=== PATIENT | male | born 1970 | race Caucasian/White ===

== ENCOUNTER 2018-05-14 11:43 | Emergency (ER) | payer BC, OTHER ==
--- OUTSIDE RECORDS SUMMARY | 2018-05-14 12:01 | XMS REPORT ---
:1970 External Reference #:[id number] Author Organization [facility] Address [address] [place] [address] Phone [phone] Care Team Providers Name Role Phone Tiarra Ramirez M.D. 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 Primary Care Physician Unavailable Payers Type Date Identification Numbers Payment Provider Subscriber Commercial Effective: Policy Number: [id number] ARIADNA NIKI Monteiro 2018 PayID: [id number] [address] [address] T[place] Lindsay [address] Commercial Expires: 2017 PayID: [id number] Self Pay Jacob Monteiro Medigap Part B Effective: 2014 Policy Number: ARIADNA MCCARTYLety Monteiro [id number] Expires: 2017 PayID: [id number] [address] [place] [address] Medigap Part B Expires: 2014 Policy Number: [facility] NIKI Monteiro [id number] Group Number: [id number] [address] PayID: [id number] TAMMIE Lindsay [address] Medigap Part B Expires: 2017 Policy Number: [facility] NIKI Monteiro [id number] PayID: [id number] [address] [address] TAMMIE Lidnsay [address] Problems Date Description Provider Status Onset: 02/21/2016 History of malignant neoplasm of Sujit Finney MD Active kidney Onset: 09/21/2016 Solitary nodule of lung ZACK Smith Active [facility] Onset: 09/21/2016 Microscopic hematuria ZACK Smith Active [facility] Onset: 09/21/2016 Lymphadenopathy ZACK Smith Active [facility] 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 Cigarette Use 04/28/2018 Former Cigarette Smoker 1 Pack Daily 20 Year History ETOH Use current beer 1 per week Daily Caffeine Consumes on average 2 cups of coffee per day Allergies, Adverse Reactions, Alerts Date Description Reaction Status Severity Comments 01/21/2007 Anti-Inflammatories active 12/27/2015 Skelaxin active 12/27/2015 Celebrex active Medications Medication Date Status Form Strength Qnty SIG Indications Ordering Provider Ibuprofen / Active Tablets 200mg as needed Unknown 0000 No Active 02/10/ Hx Unknown Medications 2015 - 2017 Cephalexin 01/27/ Hx Capsules 500mg 30caps take 1 tab Sujit Mckeon 2015 - by mouth MD Sharmin 02/09/ tid 2015 [place] 12/30/ Hx Tablets 5-325mg 30tabs 1 tab Sujit Mckeon 2015 - every 4 MD Sharmin 01/26/ hours as 2016 needed for pain i stop # [id number] start after surgery Colace 12/30/ Hx Capsules 100mg 30caps 1 by mouth Sujit Mckeon 2015 - twice a MD Sharmin 01/27/ day 2015 No Active 12/26/ Hx Unknown Medications 2015 - 2015 Cialis 03/28/ Hx Tablets 2.5mg 1tabs 1 po qd Praveen 2007 - dispense 12/25/ one box of Antwon Davalos 2015 30 . Viagra 01/14/ Hx Tablets 100mg 6tabs one tablet Praveen 2005 - po qd prn 03/28/ erections. Antwon Davalos 2007 ..december cut . the pills in half Cialis 01/13/ Hx Tablets 10mg 6tabs one tab po Praveen 2004 - qod prn 01/14/ Antwon Davalos 2005 . Flomax 01/13/ Hx Capsules 0.4mg 30caps 1 po q30 Praveen 2005 - mins after M. 12/25/ dinner Antwon Davalos 2015 . Celebrex / Hx Unknown 2007 Centrum / Hx Unknown 2015 Lexapro / Hx Unknown 2007 Diovan / Hx .5mg Unknown 2015 Vital Signs Date Vital Result Comment 04/28/2018 Height 69 inches 5'9" Weight 265.00 lb Weight in kg's 120.204 BMI (Body Mass Index) 39.1 kg/m2 BP Systolic 148 mmHg BP Diastolic 84 mmHg Heart Rate 62 /min 09/24/2017 Height 69 inches 5'9" Weight 260.00 lb Weight in kg's 117.936 BMI (Body Mass Index) 38.4 kg/m2 BP Systolic 142 mmHg BP Diastolic 86 mmHg Heart Rate 68 /min Post Void Residual ml 34 Bladder Scan 09/21/2016 Height 69 inches 5'9" Weight 260.00 lb Weight in kg's 117.936 BMI (Body Mass Index) 38.4 kg/m2 BP Systolic 140 mmHg BP Diastolic 78 mmHg Heart Rate 78 /min 02/21/2016 Height 69 inches 5'9" Weight 255.00 lb Weight in kg's 115.668 BMI (Body Mass Index) 37.7 kg/m2 BP Systolic 145 mmHg BP Diastolic 74 mmHg Heart Rate 70 /min 01/28/2016 BP Systolic 140 mmHg BP Diastolic 78 mmHg 12/27/2015 Height 68 inches 5'8" Weight 255.00 lb Weight in kg's 115.668 BMI (Body Mass Index) 38.8 kg/m2 BP Systolic 131 mmHg BP Diastolic 80 mmHg Heart Rate 64 /min Post Void Residual ml 96 Bladder scan: Indicated for frequency Results Test Date Test Result H/L Range Note 230 Ua Routine 04/28/2018 Ua Glucose Negative Ua Protein Negative Ua Nitrite Negative Ua Leuko Negative Ua Blood Trace-lysed Ua Color Yellow Ua Ketones Negative Ua Clarity Clear Ua Specific [place] <=1.005 1.003-1.030 Ua PH 6.0 5.0-7.5 Ua Bilirubin Negative Ua Urobilinogen 0.2 E.U./dL 0.0-1.0 BMP 03/14/2018 BUN - Urea Nitrogen 21 Creatinine 1.43 High Calcium 9.0 Alt (SGPT) 42 Ast (Sgot) 22 Potassium 4.4 Hepatic Panel 03/14/2018 Alkaline Phosphatase 66 CBC W/Diff 03/14/2018 Hemoglobin 14.7 Hematocrit 44.1 230 Ua Routine 09/24/2017 Ua Glucose Negative Ua Protein Negative Ua Nitrite Negative Ua Leuko Negative Ua Blood Trace-intact Ua Color Yellow Ua Ketones Negative Ua Clarity Clear Ua Specific [place] 1.015 1.003-1.030 Ua PH 6.5 5.0-7.5 Ua Bilirubin Negative Ua Urobilinogen 0.2 E.U./dL 0.0-1.0 BUN And Creatinine 09/08/2017 BUN - Urea Nitrogen 24 High Creatinine 1.5 High 230 Ua Routine 09/21/2016 Ua Glucose Negative Ua Protein Negative Ua Nitrite Negative Ua Leuko Negative Ua Blood Trace-intact Ua Color Yellow Ua Ketones Negative Ua Clarity Clear Ua Specifici [place] 1.010 1.003-1.030 Ua PH 6.0 5.0-7.5 Ua Bilirubin Negative Ua Urobilinogen 0.2 E.U./dL 0.0-1.0 BUN And Creatinine 08/17/2016 BUN 20.0 mg/dL 7.0-24.0 1 Creatinine 1.59 mg/dL High 0.72-1.25 1 BUN And Creatinine 04/13/2016 BUN 22.0 mg/dL 7.0-24.0 1 Creatinine 1.48 mg/dL High 0.72-1.25 1 230 Ua Routine 02/21/2016 Ua Glucose Negative Ua Protein Negative Ua Nitrite Negative Ua Leuko Negative Ua Blood Trace-intact Ua Color Yellow Ua Ketones Negative Ua Clarity Clear Ua Specifici [place] 1.020 1.003-1.030 Ua PH 5.5 5.0-7.5 Ua Bilirubin Negative Ua Urobilinogen 0.2 E.U./dL 0.0-1.0 230 Ua Routine 01/28/2016 Ua Glucose Negative Ua Protein Negative Ua Nitrite Negative Ua Leuko Negative Ua Blood Negative Ua Color Yellow Ua Ketones Negative Ua Clarity Clear Ua Specifici [place] 1.020 1.003-1.030 Ua PH 5.0 5.0-7.5 Ua Bilirubin Negative Ua Urobilinogen 0.2 E.U./dL 0.0-1.0 CMP 01/06/2016 Sodium 138 mmol/L (136-145) Potassium 4.5 mmol/L (3.6-5.2) Chloride 104 mmol/L (100-108) Co2 28 mmol/L (22-31) Anion Gap 6 mmol/L Low (7-16) Urea Nitrogen 15 mg/dL (7-24) Creatinine 1.14 mg/dL (0.80-1.30) BUN/Creat Ratio 13.2 RATIO (10.0-20.0) Glucose 94 mg/dL (70-99) Calcium 9.6 mg/dL (8.4-10.2) Total Protein 7.3 g/dL (6.4-8.2) Albumin 4.3 g/dL (3.5-4.6) Globulin 3.0 g/dL (2.7-4.3) Alb/Glob Ratio 1.4 RATIO Alkaline Phosphatase 64 U/L (45-117) Bilirubin,Total 0.3 mg/dL (0.0-1.0) Ast (Sgot) 22 U/L (11-39) Alt (SGPT) 40 U/L (12-78) GFR >60 ml/min/1.73m2 (>59) GFR ( Amer) >60 ml/min/1.73m2 (>59) GFR Interpretation <SEE NOTE> 2 CBC Without Diff 01/06/2016 WBC 10.6 10*3/uL (4.1-11.0) RBC 5.37 10*6/uL (4.60-6.10) HGB 15.6 g/dL (13.5-18.0) HCT 47.2 % (41.0-53.0) 3 MCV 87.9 fL (80.0-95.0) MCH 29.1 pg (27.0-32.0) MCHC 33.1 g/dL (32.0-36.0) RDW 14.0 % (10.5-14.5) PLT 214 10*3/uL (150-450) MPV 8.6 fL (7.1-10.7) Laboratory test finding 01/06/2016 Type And Screen SPEC EXP DATE <SEE NOTE> 4 230 Ua Routine 12/27/2015 Ua Glucose Negative Ua Protein Negative Ua Nitrite Negative Ua Leuko Negative Ua Blood Negative Ua Color Yellow Ua Ketones Negative Ua Clarity Clear Ua Specifici [place] 1.015 1.003-1.030 Ua PH 7.0 5.0-7.5 Ua Bilirubin Negative Ua Urobilinogen 0.2 E.U./dL 0.0-1.0 CBC W/Diff 10/31/2015 Hemoglobin 16.1 Hematocrit 49.0 CMP 10/31/2015 BUN - Urea Nitrogen 21 High Creatinine 1.3 Calcium 10.0 Alkaline Phosphatase 64 Ast (Sgot) 22 Potassium 4.5 Alt (SGPT) 27 Laboratory test finding 10/31/2015 PSA Total 0.6 1 Have labs drawn one week prior to next appointment. 2 NORMAL KIDNEY FUNCTION OR MILD DISEASE - GFR >OR=60 CHRONIC KIDNEY DISEASE - GFR 15 - 59 RENAL FAILURE - GFR <15 Est. GFR calculation based on the MDRD study equation, which assumes a steady state for creatinine. Est. GFR should not be used for medication dosing. 3 PERFORMED AT [address] [place] [address] 4 SPEC EXP DATE 01/16/2016 PATIENT ABO/Rh A POSITIVE ANTIBODY SCREEN NEGATIVE TESTING SITE PERFORMED AT [address] [place] [address] Procedures Date CPT Code Description Status 04/28/2018 82406 Genitalia; Ultrasound, Scrotum And Contents Completed 09/24/2017 20990 Bladder Scan, Post Voiding Residual Urine Completed 09/22/[address] Abdomen/Pelvis With Contrast Completed 09/22/[address] Chest W/O Contrast Completed 08/26/[address] Abdomen/Pelvis With Contrast Completed 08/26/[address] Chest W/Contrast Completed 04/23/[address] Abdomen/Pelvis With Contrast Completed 04/23/[address] Chest W/Contrast Completed 01/13/2016 38043 Laparoscopic, Radical Nephrectomy Hosp Completed 01/06/[address] Chest W/O Contrast Completed 01/21/2007 96353 Bladder Scan, Post Voiding Residual Urine Completed 01/14/2006 13315 Bladder Scan, Post Voiding Residual Urine Completed 01/13/2005 86597 Bladder Scan, Post Voiding Residual Urine Completed 01/13/2005 83681 Urodynamics, Complex Uroflowmetry Eg Calibrated Completed Electronic Office 01/09/2004 15424 Urodynamics, Complex Uroflowmetry Eg Calibrated Completed Electronic Office 11/14/2003 82533 Cystourethroscopy, Office Completed 11/14/2003 72464 Bladder Scan, Post Voiding Residual Urine Completed 11/14/2003 88898 Urodynamics, Complex Uroflowmetry Eg Calibrated Completed Electronic Office Encounters Type Date Location Provider CPT E/M Dx Office Visit 04/28/2018 10:30a Oanh Saab/ [place] [address] Z85.528 [facility] N43.2 N43.41 Office Visit 09/24/2017 1:15p Oanh Saab/ [place] [address] R91.1 [facility] Z85.528 R59.0 R35.0 Office Visit 09/21/2016 9:30a [facility] [address] Z85.528 [facility] C.U.N.P. R59.0 R31.1 R91.1 Office Visit 04/24/2016 10:45a Oanh Saab/ [place] [address] Z85.528 [facility] Office Visit 12/27/2015 4:30p Oanh Saab/ [place] [address] C64.1 [facility] Office Visit 03/28/2008 12:00p [facility]/ Praveen Hunter [address] 788.21 [facility] Henri Davalos 607.84 Office Visit 01/21/2007 4:00p [facility] Praveen Hunter [address]/ Aaron Davalos M.D. Urology 600.01 Office Visit 01/14/2006 9:20a [facility] Praveen Hunter [address]/ Linda.MShira Davalos M.D. Urology 600.01 Office Visit 01/13/2005 3:30p [facility] [place]. [address]/ Linda.M.Samuel Davalos M.D. Urology 788.21 Office Visit 01/09/2004 3:15p [facility] [place] M. [address] 788.41 [place]/ Linda.MShira Davalos M.D. Urology 599.3-1 Office Visit 11/14/2003 3:45p [facility]/ Yfnopher M. [address] 599.7 A.M.PKasandra Davalos M.D. 788.41 Office Visit 10/18/2003 2:15p [facility] [address] 599.7 A.M.PKasandra Davalos M.D. Plan of Care Future Appointment(s):09/28/2018 3:45 pm - Sujit Finney MD at [facility]/ [facility] Quodmmp3904/28/2018 - Sujit Finney MDZ85.528 Personal history of other malignant neoplasm of kidneyComments:No evidence of disease recurrence.N43.2 Other hydroceleComments:Medium size, mildly bothersome.N43.41 Spermatocele of epididymis, single
[2018-05-14 12:59] VITALS: BP 140/76
[2018-05-14] MEDS ORDERED: Tetan/Diph/Pertus SYR(Tdap)* 0.5 ML SYR(BOOSTRIX) use SYR IM ONE (13:28)
--- NOTE | 2018-05-14 13:33 | UC ---
Laceration HPI - HPI Summary HPI Summary: Here w/ laceration to LEFT wrist from clean razor knife today at 1100. Pt states he was doing woodwork and knife accidently stabbed him near the base of his left thumb. Unsure of last tetanus - History Of Current Complaint Chief Complaint: UCLaceration Stated Complaint: LEFT HAND LACERATION Time Seen by Provider: 05/14/18 13:27 Hx Obtained From: Patient Laceration Location: Hand Mechanism Of Injury: Sharp Trauma Onset/Duration: Sudden Onset, Lasting Hours Severity: Mild Pain Intensity: 2 Aggravating Factors: Nothing Hands: 1 - linear laceration 1.5cm in length across proximal aspect of thenar eminence of left hand. - Allergies/Home Medications Allergies/Adverse Reactions: Allergies Allergy/AdvReac Type Severity Reaction Status Date / Time celecoxib [From Celebrex] Allergy See Comment Verified 05/14/18 12:48 Home Medications: Home Medications NK [No Home Medications Reported] 05/14/18 [History Confirmed 05/14/18] PMH/Surg Hx/FS Hx/Imm Hx Previously Healthy: Yes Cardiovascular History: Hypertension - Surgical History Surgical History: Yes Surgery Procedure, Year, and Place: 2 right shoulder surgeries. RIGHT kidney removed, 01/13/16. LEFT carpal tunnel - Family History Known Family History: Positive: Hypertension, Diabetes - Social History Alcohol Use: Occasionally Substance Use Type: None Smoking Status (MU): Never Smoked Tobacco - Immunization History Most Recent Tetanus Shot: unsure Review of Systems Constitutional: Negative Skin: Other - laceration All Other Systems Reviewed And Are Negative: Yes Physical Exam Triage Information Reviewed: Yes Appearance: Well-Appearing, No Pain Distress, Obese Vital Signs: Initial Vital Signs Temp 98.2 F 05/14/18 12:50 Pulse 62 05/14/18 12:50 Resp 16 05/14/18 12:50 BP 140/76 05/14/18 12:50 Pulse Ox 97 05/14/18 12:50 Vital Signs Reviewed: Yes Eyes: Positive: Conjunctiva Clear ENT: Positive: Hearing grossly normal Neck: Positive: Supple Respiratory: Positive: Chest non-tender Cardiovascular: Positive: Pulses Normal, Brisk Capillary Refill Abdomen Description: Positive: Nontender Musculoskeletal: Positive: Strength Intact, ROM Intact, No Edema Skin: Positive: Other - linear laceration 1.5cm in length proximal thenar eminence left hand Laceration Repair - Laceration Repair 1 Description: Linear Laceration Size After Repair: Length (cm) - 1.5cm Modified For Repair: No Type Injection: Local Anesthesia Used: 1.0% Lido Cleansing Completed Via Routine Prep: Yes Irrigation With Pressure Irrigation Device: No Closure Material: Skin Adhesive, Sutures Closure Method: Single Layer Suture Of: Skin Suture Type: Prolene Laceration Course/Dx - Course/Dx Course Of Treatment: laceration was cleaned and under aseptic method 2 sutures were placed with ethilon 5 . Wound covered with dermabond after suture repair. To follow up in 7 days for wound check. - Differential Dx - Laceration/Wound Provider Diagnoses: Elevated BP without diagnosis of HTN. Wrist laceration Discharge - Sign-Out/Discharge Documenting (check all that apply): Patient Departure All imaging exams completed and their final reports reviewed: No Studies - Discharge Plan Condition: Stable Disposition: HOME Patient Education Materials: Chronic Hypertension (ED), Laceration (ED) Referrals: Tom MOELLER,Quynh Raymundo [Primary Care Provider] - Additional Instructions: Please return to for wound check and suture removal in 7 days Please follow up with your PCP regarding High blood pressure and treatment of it. - Billing Disposition and Condition Condition: STABLE Disposition: Home
[2018-05-14] MEDS ORDERED: Lidocaine 1% MPF* 2 ML VIAL INJ ONE (13:47)
== END 2018-05-14 14:29 | disposition home or self-care (01) ==
LOC: UCCORT 11:43
DX: S61.412A Laceration without foreign body of left hand, initial encounter (principal); W26.0XXA Contact with knife, initial encounter; Y93.89 Activity, other specified; Y92.9 Unspecified place or not applicable; R03.0 Elevated blood-pressure reading, without diagnosis of hypertension; I10 Essential (primary) hypertension; Z88.8 Allergy status to other drugs, medicaments and biological substances
CPT/HCPCS: 12001; 90471; 90715; 99202; G0463